=== PATIENT | female | born 1980 | race Hispanic/Latino ===

== ENCOUNTER 2023-01-29 01:21 | Inpatient (IN) | payer BC ==
[2023-01-29 03:49] VITALS: BMI 42.9
[2023-01-29] MEDS ORDERED: Communication Order-Pharmacy FS ONE (06:01)
[2023-01-29] MEDS ORDERED: Morphine 4 MG/ML VIAL SLOW IVP PRN (06:07)
[2023-01-29] MEDS ORDERED: Ondansetron ODT 4 MG TAB PO PRN (06:07)
[2023-01-29] MEDS ORDERED: Calcium Carbonate 500 MG ChewTAB PO PRN (06:07)
[2023-01-29] MEDS ORDERED: Ondansetron PF 4 MG/2 ML Vial IVP PRN (06:07)
[2023-01-29] MEDS ORDERED: Senokot S 8.6-50 MG TAB PO PRN (06:07)
[2023-01-29] MEDS ORDERED: Glucagon 1 MG/ML KIT IM PRN (06:14)
[2023-01-29] MEDS ORDERED: HumaLOG 300 UNITS/3 ML VIAL SC PRN (06:14)
[2023-01-29] MEDS ORDERED: Dextrose 5% in Water 1,000 ML IV PRN (06:14)
[2023-01-29] MEDS ORDERED: Dextrose 50% Abboject 50 ML SYRINGE SLOW IVP PRN (06:14)
[2023-01-29] MEDS ORDERED: NS 0.9% w/ 20 MEQ KCL 1,000 ML/1,000 ML BAG IV SCH (06:15)
[2023-01-29] MEDS ORDERED: Ibuprofen 400 MG TAB PO PRN (06:15)
[2023-01-29] MEDS ORDERED: Potassium Chloride 20 MEQ TAB PO SCH (06:30)
[2023-01-29] MEDS ORDERED: Cefepime 2 GM in Sodium Chloride 0.9% 100 ML IVPB SCH (06:30)
[2023-01-29 06:59] LABS: Bilirubin Neg (Negative); Blood, Urine 25 (Negative); Clarity Clear (Clear); Glucose, Urine (Dipstick) Normal (Negative); Ketone, Urine Negative (Negative); Leukocyte Negative (Negative); Nitrite Negative (Negative); Protein, Urine (Dipstick) 30 mg/dl (Neg-Trace); Specific Gravity, Urine 1.015 (1.005-1.030); pH, Urine 6.5 (5.0-9.0)
[2023-01-29 07:18] LABS: Anion Gap 14 mmol/L (10-20); BUN (Urea Nitrogen) 13 mg/dL (7.0-18.7); Calc. Creatinine Clearance 178 mL/min (70-130); Calcium 8.5 mg/dL (7.8-10.44); Carbon Dioxide 21 mmol/L (22-29); Chloride 106 mmol/L (98-107); Estimated GFR 106; Glucose 136 mg/dL (70-105); Magnesium 1.7 mg/dL (1.6-2.6); Potassium 3.4 mmol/L (3.5-5.1); Sodium 138 mmol/L (136-145)
[2023-01-29 07:57] LABS: #Eosinphils 0.1 10x3/uL (0.0-0.5); #Monocytes 0.9 10x3/uL (0.0-1.1); %Basophils 0.2 % (0.0-2.0); %Eosinophils 0.9 % (0.0-6.0); %Lymphocytes 12.6 % (18.0-47.0); %Monocytes 6.8 % (0.0-10.0); %Neutrophils 79.2 % (40.0-75.0); Hematocrit 33.3 % (34.9-44.5); Hemoglobin 11.1 g/dL (12.0-15.5); Mean Corpuscular HGB CONC 33.3 g/dL (32.0-36.0); Mean Corpuscular Hemoglobin 29.4 pg (27.0-33.0); Mean Corpuscular Volume 88.3 fl (81.6-98.3); Mean Platelet Volume 8.9 fl (7.4-10.4); Platelet Count 292 10x3/uL (150-450); Red Blood Cell (RBC) Count 3.77 10x6/uL (3.90-5.03); White Blood Cell (WBC) Count 12.7 10x3/uL (3.5-10.5)
[2023-01-29 08:59] LABS: RBC/HPF 0-3 HPF (0-3); Squamous Epithelial 0-3 HPF (0-3); WBC/HPF 0-3 HPF (0-3)
[2023-01-29 09:00] LABS: Bacteria/HPF Rare-Few HPF (None Seen); Mucous/LPF 1+ LPF (<2+)
[2023-01-29] MEDS ORDERED: metFORMIN 500 MG TAB PO SCH (09:00)
[2023-01-29] MEDS: Lactated Ringer's 1,000 ML IV SCH ×2 (09:58→21:04)
[2023-01-29] MEDS: Cefepime 2 GM in Sodium Chloride 0.9% 100 ML IVPB SCH ×2 (09:58→23:16)
[2023-01-29] MEDS: Hydrochlorothiazide 25 MG TAB PO SCH (09:59)
[2023-01-29] MEDS: FLUoxetine HCl 20 MG CAP PO SCH (10:01)
[2023-01-29] MEDS: Valsartan 80 MG TAB PO SCH (10:02)
[2023-01-29] MEDS: Prenatal Vitamin 1 TAB PO SCH (10:03)
[2023-01-29] MEDS: Acetaminophen 325 MG TAB PO PRN ×2 (14:32→20:55)
[2023-01-29] MEDS ORDERED: Amlodipine 10 MG TAB PO SCH (21:00)
[2023-01-30 04:59] LABS: #Monocytes 0.7 10x3/uL (0.0-1.1); #Neutrophils 3.1 10x3/uL (1.5-8.4); %Basophils 0.4 % (0.0-2.0); %Eosinophils 0.7 % (0.0-6.0); %Lymphocytes 31.1 % (18.0-47.0); %Neutrophils 55.6 % (40.0-75.0); Hematocrit 31.4 % (34.9-44.5); Hemoglobin 10.4 g/dL (12.0-15.5); Mean Corpuscular HGB CONC 33.1 g/dL (32.0-36.0); Mean Corpuscular Hemoglobin 29.5 pg (27.0-33.0); Mean Corpuscular Volume 89.2 fl (81.6-98.3); Mean Platelet Volume 8.8 fl (7.4-10.4); Platelet Count 217 10x3/uL (150-450); RBC Distribution Width 15.2 % (11.5-14.5); Red Blood Cell (RBC) Count 3.52 10x6/uL (3.90-5.03); White Blood Cell (WBC) Count 5.6 10x3/uL (3.5-10.5)
[2023-01-30 05:04] LABS: Anion Gap 14 mmol/L (10-20); BUN (Urea Nitrogen) 10 mg/dL (7.0-18.7); Calc. Creatinine Clearance 174 mL/min (70-130); Calcium 8.6 mg/dL (7.8-10.44); Carbon Dioxide 23 mmol/L (22-29); Chloride 105 mmol/L (98-107); Estimated GFR 102; Glucose 176 mg/dL (70-105); Potassium 3.1 mmol/L (3.5-5.1); Sodium 139 mmol/L (136-145)
[2023-01-30 07:29] VITALS: BP 108/62; TEMP 98.6
[2023-01-30] MEDS ORDERED: Potassium Bicarbonate/Cit Ac 20 MEQ TAB PO SCH (08:30)
[2023-01-30] MEDS: FLUoxetine HCl 20 MG CAP PO SCH (09:00)
[2023-01-30] MEDS: Prenatal Vitamin 1 TAB PO SCH (09:00)
[2023-01-30] MEDS: Hydrochlorothiazide 25 MG TAB PO SCH (09:00)
[2023-01-30] MEDS: Valsartan 80 MG TAB PO SCH (09:00)
[2023-01-30] MEDS ORDERED: Potassium Chloride 20 MEQ TAB PO SCH (12:30)
== END 2023-01-30 12:48 | disposition home or self-care (01) | DRG 872 ==
LOC: CSHTELE 03:00
PROVIDERS: ADMIT Family Medicine; ATTEND Internal Medicine
DX: A41.9 Sepsis, unspecified organism (principal); N20.1 Calculus of ureter; N39.0 Urinary tract infection, site not specified; E87.6 Hypokalemia; F17.210 Nicotine dependence, cigarettes, uncomplicated; K21.9 Gastro-esophageal reflux disease without esophagitis; E11.9 Type 2 diabetes mellitus without complications; N83.202 Unspecified ovarian cyst, left side; Z98.890 Other specified postprocedural states; Z88.1 Allergy status to other antibiotic agents; Z91.018 Allergy to other foods; Z88.8 Allergy status to other drugs, medicaments and biological substances; Z79.84 Long term (current) use of oral hypoglycemic drugs; Z79.899 Other long term (current) drug therapy; Z90.710 Acquired absence of both cervix and uterus; Z98.51 Tubal ligation status
CPT/HCPCS: 36415; 36416; 76770; 80048; 81001; 83735; 85025; J0692; J1650; J1815; J3480; J3490; J7120; Q0162